=== PATIENT | male | born 1950 | race Hispanic/Latino ===

== ENCOUNTER 2017-06-07 05:11 | Day surgery (SDC) | payer MEDICARE, OTHER ==
[2017-06-07 05:11] VITALS: BMI 27.6
[2017-06-07 05:32] VITALS: RESP 18; TEMP 98.2
--- NOTE | 2017-06-07 05:44 | ED PDOC ---
Arrival/HPI - General Chief Complaint: Medical Clearance Time Seen by Provider: 06/07/17 05:29 Historian: Patient - History of Present Illness Narrative History of Present Illness (Text): 06/07/17 05:41 Patient is a 66 year old male whose past medical history includes diabetes, who presents to the Emergency department complaining of persistent hiccups. Patient reports his symptoms started at 21:00 yesterday and was not alleviated by various home remedies. He also experiences dyspnea as an associated symptom. Patient denies fevers, chills, chest pain, cough, abdominal pain, nausea, vomiting, diarrhea, headache, dizziness, back pain, neck pain, or any other complaint. Time/Duration: Other (Last night (21:00)) Symptom Course: Unchanged Activities at Onset: Rest Context: Home Past Medical History - Provider Review Nursing Documentation Reviewed: Yes - Cardiac Hx Cardiac Disorders: Yes Hx Hypertension: Yes - Pulmonary Hx Respiratory Disorders: No - Neurological Hx Neurological Disorder: No - HEENT Hx HEENT Disorder: No - Renal Hx Renal Disorder: No - Endocrine/Metabolic Hx Endocrine Disorders: Yes Hx Diabetes Mellitus Type 2: Yes - Hematological/Oncological Hx Blood Disorders: No - Integumentary Hx Dermatological Disorder: No - Musculoskeletal/Rheumatological Hx Musculoskeletal Disorders: No - Gastrointestinal Hx Gastrointestinal Disorders: No - Genitourinary/Gynecological Hx Genitourinary Disorders: No - Psychiatric Hx Psychophysiologic Disorder: No Hx Substance Use: No Family/Social History - Physician Review Nursing Documentation Reviewed: Yes Family/Social History: No Known Family HX Smoking Status: Never Smoked Hx Alcohol Use: No Hx Substance Use: No Allergies/Home Meds Allergies/Adverse Reactions: Allergies ofloxacin [From Floxin] Allergy (Verified 06/07/17 05:32) "hiccups" Penicillins Allergy (Verified 06/07/17 05:32) ANAPHYLAXIS Home Medications: Home Meds Medication Instructions Recorded Confirmed Glimepiride [Glimepiride] 60 mg PO BID 11/21/15 06/07/17 metFORMIN [glucOPHAGE] 1,000 mg PO BID 11/21/15 06/07/17 Azilsartan Medoxomil [Edarbi] 40 mg PO DAILY 06/07/17 06/07/17 Review of Systems - Physician Review All systems were reviewed & negative as marked: Yes - Review of Systems Constitutional: absent: Fevers, Night Sweats Respiratory: Other (Hiccups). absent: SOB, Cough Cardiovascular: absent: Chest Pain, KEATING Gastrointestinal: absent: Abdominal Pain, Diarrhea, Nausea, Vomiting Musculoskeletal: absent: Back Pain, Neck Pain Neurological: absent: Headache, Dizziness Physical Exam Vital Signs Reviewed: Yes Vital Signs Temp Pulse Resp BP Pulse Ox 06/07/17 06:14 115 H 18 161/100 H 98 06/07/17 06:07 109 H 175/116 H 06/07/17 05:29 98.2 F 122 H 18 169/101 H 96 Temperature: Afebrile Blood Pressure: Hypertensive Pulse: Tachycardic Respiratory Rate: Normal Appearance: Positive for: Well-Appearing, Non-Toxic, Comfortable Pain Distress: None Mental Status: Positive for: Alert and Oriented X 3 - Systems Exam Head: Present: Atraumatic, Normocephalic Pupils: Present: PERRL Extroacular Muscles: Present: EOMI Conjunctiva: Present: Normal Mouth: Present: Moist Mucous Membranes Neck: Present: Normal Range of Motion Respiratory/Chest: Present: Clear to Auscultation, Good Air Exchange. No: Respiratory Distress, Accessory Muscle Use Cardiovascular: Present: Regular Rate and Rhythm, Normal S1, S2. No: Murmurs Abdomen: No: Tenderness, Distention, Peritoneal Signs Back: Present: Normal Inspection Upper Extremity: Present: Normal Inspection. No: Cyanosis, Edema Lower Extremity: Present: Normal Inspection. No: Edema Neurological: Present: GCS=15, CN II-XII Intact, Speech Normal Skin: Present: Warm, Dry, Normal Color. No: Rashes Psychiatric: Present: Alert, Oriented x 3, Normal Insight, Normal Concentration Medical Decision Making ED Course and Treatment: 06/07/17 05:47 Impression: Patient is a 66 year old male with persistent hiccups since 21:00.present with acute anterior wall mi Differential Diagnosis included but are not limited to: STEMI Plan: -- EKG -- labs, cardiac enzymes -- chest X-ray -- Reassess and disposition Progress Notes: 06/07/17 5:46 EKG shows sinus tachycardia at 119 BPM with anterior wall MD. Interpreted by me. 06/07/17 05:48 Code heart activated 06/07/17 5:[address] Mitchell (busser), who will review EKG. 06/07/17 5:52 Spoke again with who reviewed EKG and states patient will be taken to laboratory operations coordinator, and recommends integrilin bolus, Brilinta, and Heparin. 06/07/17 06:15 Chest X-ray negative with no acute processes. Interpreted by me. 06/07/17 06:17 Pt taken to laboratory operations coordinator with house doctor at bedside. 06/08/17 08:36 - Critical Care Critical Care Minutes: 30 minutes Narrative Critical Care (Text): management of STEMI - Lab Interpretations Lab Results: 06/07/17 05:53 06/07/17 05:53 Lab Results 06/07/17 05:53: Sodium 134, Potassium 4.0, Chloride 98, Carbon Dioxide 24, Anion Gap 17, BUN 28 H, Creatinine 1.6 H, Est GFR ( Amer) 53, Est GFR ( Non-Af Amer) 43, Random Glucose 310 H*, Calcium 9.2, Total Bilirubin 0.9, AST 157 H D, ALT 38, Alkaline Phosphatase 95, Lactate Dehydrogenase 2060 H, Total Creatine Kinase 404 H, CK-MB (CK-2) 12.3 H, CK-MB (CK-2) % 3.0, Troponin I 36.40 H*, Total Protein 7.8, Albumin 4.1, Globulin 3.8, Albumin/Globulin Ratio 1.1 06/07/17 05:53: PT 12.3, INR 1.07, APTT 34.1 06/07/17 05:53: WBC 13.7 H, RBC 5.56, Hgb 14.3, Hct 43.5, MCV 78.2 L, MCH 25.7, MCHC 32.9, RDW 15.9 H, Plt Count 182, MPV 9.0, Gran % 82.7 H, Lymph % (Auto) 8.6 L, Foard % (Auto) 8.4 H, Eos % (Auto) 0.2 L, Baso % (Auto) 0.1, Gran # 11.28 H, Lymph # (Auto) 1.2, Foard # (Auto) 1.1 H, Eos # (Auto) 0.0, Baso # (Auto) 0.02 - RAD Interpretation Radiology Orders: 06/07/17 05:52 CHEST PORTABLE [RAD] Stat Software Application Tester: ED Physician - EKG Interpretation Interpreted by ED Physician: Yes Type: 12 lead EKG - Medication Orders Current Medication Orders: Discontinued Medications Aspirin (Ecotrin) 81 mg PO STAT STA Stop: 06/07/17 05:52 Last Admin: 06/07/17 06:01 Dose: 81 mg Clopidogrel Bisulfate (Plavix) 600 mg PO STAT STA Stop: 06/07/17 05:52 Last Admin: 06/07/17 06:01 Dose: 600 mg Eptifibatide (Integrilin Bolus) 18 mg 0.18 mg/kg (18 mg) IV ONCE ONE Stop: 06/07/17 05:52 Last Admin: 06/07/17 06:04 Dose: 18 mg eMAR Start Stop Document 06/07/17 06:04 AD (Rec: 06/07/17 06:29 AD [id number]) Intravenous Solution Start Date 06/07/17 Start Time 06:04 Heparin Sodium (Porcine) (Heparin) 5,000 units IVP STAT STA PRN Reason: Protocol Stop: 06/07/17 06:02 Last Admin: 06/07/17 06:06 Dose: 5,000 units IVP Administration Document 06/07/17 06:06 AD (Rec: 06/07/17 06:30 AD [id number]) Charges for Administration # of IVP Administrations 1 Eptifibatide (Integrilin) 75 mg in 100 mls @ 15.966 mls/hr IV .Q6H16M MAGUI; 2 MCG/KG/MIN PRN Reason: Protocol Nitroglycerin/Dextrose (Nitroglycerin 50 Mg/250 Ml D5w) 50 mg in 250 mls @ 1.5 mls/hr IV .Q24H PRN; Protocol; 5 MCG/MIN PRN Reason: Systolic Blood Pressure Metoprolol Tartrate (Lopressor) 5 mg IVP STAT STA Stop: 06/07/17 05:52 Last Admin: 06/07/17 06:07 Dose: 5 mg IVP Administration Document 06/07/17 06:07 AD (Rec: 06/07/17 06:30 AD [id number]) Charges for Administration # of IVP Administrations 1 MAR Pulse and Blood Pressure Document 06/07/17 06:07 AD (Rec: 06/07/17 06:30 AD [id number]) Pulse Pulse Rate (60-90) 109 Blood Pressure Blood Pressure (100/60-150/90) 175/116 Ticagrelor (Brilinta) 180 mg PO STAT STA Stop: 06/07/17 06:03 Last Admin: 06/07/17 06:13 Dose: 180 mg - Scribe Statement The provider has reviewed the documentation as recorded by the Scribe Toro Mackenzie Training Under Gillian Ayon Provider Scribe Attestation: All medical record entries made by the Scribe were at my direction and personally dictated by me. I have reviewed the chart and agree that the record accurately reflects my personal performance of the history, physical exam, medical decision making, and the department course for this patient. I have also personally directed, reviewed, and agree with the discharge instructions and disposition. Disposition/Present on Arrival - Present on Arrival Any Indicators Present on Arrival: No History of DVT/PE: No History of Uncontrolled Diabetes: No Urinary Catheter: No History of Decub. Ulcer: No History Surgical Site Infection Following: None - Disposition Have Diagnosis and Disposition been Completed?: Yes Diagnosis: Anterior wall myocardial infarction Disposition: HOSPITALIZED Disposition Time: 06:20 Condition: CRITICAL
[2017-06-07] MEDS ORDERED: Eptifibatide 20 mg/10mL Inj IV ONE (05:51)
[2017-06-07] MEDS ORDERED: Metoprolol 1 mg/ml Inj IVP STA (05:51)
[2017-06-07] MEDS ORDERED: Phenylephrine 10 mg/ml Inj ONE (05:55)
[2017-06-07] MEDS ORDERED: Verapamil 2 ML ONE (05:55)
[2017-06-07] MEDS ORDERED: Lidocaine 2% Inj (20ml) ONE ×2 (05:55→07:18)
[2017-06-07] MEDS ORDERED: Midazolam 2 MG/2 ML VIAL ONE (05:56)
[2017-06-07] MEDS ORDERED: Iodixanol 320 MG/ML 100 ML BOTTLE IV ONE (05:57)
[2017-06-07] MEDS ORDERED: Iohexol 350mgl/ml 50 ML ONE (05:57)
[2017-06-07] MEDS ORDERED: Nitroglycerin 50mg in D5W 50 MG/250 ML BOTTLE IV ONE (05:57)
[2017-06-07] MEDS ORDERED: Iodixanol 320 MG/ML 200 ML BOTTLE IV ONE (05:57)
[2017-06-07 06:07] LABS: BASO # 0.02 K/mm3 (0.0-2.0); BASO % 0.1 % (0.0-3.0); EOS % 0.2 % (1.5-5.0); GRAN # 11.28 (1.4-6.5); GRAN % 82.7 % (50.0-68.0); HEMOGLOBIN 14.3 g/dL (14.0-18.0); LYMPH # 1.2 (1.2-3.4); LYMPH % 8.6 % (22.0-35.0); MEAN CELL VOLUME 78.2 fl (80.0-105.0); MEAN CORPUSCULAR HEMOGLOBIN 25.7 pg (25.0-35.0); MEAN CORPUSCULAR HGB CONC 32.9 g/dl (31.0-37.0); MONO # 1.1 (0.1-0.6); MONO % 8.4 % (1.0-6.0); RBC 5.56 10^6/uL (3.5-6.1); RED CELL DISTRIBUTION WIDTH 15.9 % (11.5-14.5); WHITE BLOOD COUNT 13.7 10^3/ul (4.5-11.0)
[2017-06-07] MEDS ORDERED: Nitroglycerin 50mg in D5W 50 MG/250 ML BOTTLE IV PRN (06:15)
[2017-06-07] MEDS ORDERED: Eptifibatide 0.75 mg/ml 75 MG/100 ML BOTTLE IV SCH (06:15)
[2017-06-07 06:17] LABS: INR 1.07 (0.93-1.08); PARTIAL THROMBOPLASTIN TIME 34.1 Seconds (25.1-36.5); PROTHROMBIN TIME 12.3 SECONDS (9.4-12.5)
[2017-06-07 06:31] LABS: ALB/GLOB RATIO 1.1 (1.1-1.8); ALBUMIN 4.1 g/dL (3.0-4.8); CALCIUM 9.2 mg/dL (8.4-10.5)
[2017-06-07] MEDS ORDERED: Eptifibatide 20 mg/10mL Inj IVP ONE (06:39)
[2017-06-07 06:48] VITALS: BP 161/100; PULSE 115; O2SAT 98
--- NOTE | 2017-06-07 06:48 | CP.PCM.PCO ---
<Rom Woodward - Last Filed: 06/07/17 06:38> Physician Communication Note - Physician Communication Note Physician Communication Note: Please see attached section for [facility] Note Summary - Summary of Event Summary of Event: This is a 66 yo M with PMH of DMII, HTN, and remote tobacco history who presented to [facility] ED with complaint of hiccups that began overnight and did not improve. Pt denies any incidence of chest pain during this time, or shortness of breath, only complained of hiccups that persisted. After arrival to [facility], an EKG was obtained as was acutely concerns for anterior-inferior infarction, due to ping ST elevations in V3-V5, and less ping but still notable ST-elevations in II, III, and aVF. Simplex Operator horizontal resaw operator for [facility] was contacted by the ED, reviewed the EKG images, and confirmed STEMI, Brittani Heart then called at 0549. Responded to the ED promptly. Pending transfer to metallurgical lab technician (awaiting cath team to arrive), pt received 81mg PO aspirin, loading dose of Plavix 600mg , Integrillin bolus of 18mg IV, Heparin 5000 units SC, Metoprolol 5mg IVP, and a Brilinta loading dose of 180mg. He was then started on a Nitro drip and an Intergillin drip. Portable monitor with pacing pads were placed on patient's bed and chest (respectively), showing sinus tachycardia (consistent with rhythm on initial EKGs), and after receiving notification of Cath team's arrival, patient was transported from ED to metallurgical lab technician without issue. Simplex Operator (Dr. Mitchell) arrived, patient remains in stable condition at time of arrival, patient handed off to him. Patient seen, reviewed, and discussed with attending, Dr. Solorio. <Dominik Solorio - Last Filed: 06/07/17 20:36> Attending/Attestation - Attestation I have personally seen and examined this patient.: Yes I have fully participated in the care of the patient.: Yes I have reviewed all pertinent clinical information: Yes Notes (Text): 06/07/17 06:52 Patient was seen in the ER promptly after I heard [facility] announcement. This 66 year old white male came to ER with complaint of hiccough. Denies chest pain, sob, nausea, palpitation, sweating, abdominal pain, cough. Has PMH of NIDDM, HTN, HLD, renal calculus, quit smoking 40 years ago, smoked 3 -4 cig/day x 3-4 years, lithotripsy, occ alocohol use, family history of D,CHF-Father,eosphageal cancer-Mother,DM-Paternal grand father. HOME MEDS:Metformin 1000mg PO BID,Glimiperide 40 mg PO daily and more. CRITICAL CARE TIME SPENT :60 MINUTES.
[2017-06-07 06:59] LABS: CK-MB 12.3 ng/mL (0.0-3.6); TROPONIN I 36.4 ng/mL
--- NOTE | 2017-06-07 08:04 | RAD ---
HISTORY: cp COMPARISON: No prior. FINDINGS: LUNGS: No active pulmonary disease. PLEURA: No significant pleural effusion identified, no pneumothorax apparent. CARDIOVASCULAR: Normal. OSSEOUS STRUCTURES: No significant abnormalities. VISUALIZED UPPER ABDOMEN: Normal. OTHER FINDINGS: None. IMPRESSION: No active disease.
--- NOTE | 2017-06-07 08:22 | PCM.RRT ---
NECKTIE TURNER Nurse Assessment - Situation Date: 06/07/17 Time NECKTIE TURNER was called: 07:19 (Brittani Jorge) NECKTIE TURNER Responder Arrival Time: 07:19 NECKTIE TURNER Location:: Pre Owned Sales Consultant NECKTIE TURNER Called By: RN - IV IV Inserted during NECKTIE TURNER?: No IV Fluids Initiated During NECKTIE TURNER?: Already running IVF. It was made wide open - Respiratory Oxygen Delivery Method: Non Rebreather @% Oxygen Flow Rate: 100 Was the Patient Ventilated with Bag/Mask 100% O2?: Yes Secretions Suctioned?: Yes Was the Patient Intubated?: No (Difficult intubation. Dr Nova and Anethesiologist assisted) Was the Patient Placed on a Ventilator?: No - Diagnostic Test Ordered EKG: Yes (Anterior-inferior infarction, ST elevations in V3-V5, II, III, and aVF ) CPR started during NECKTIE TURNER?: Yes - Tamara Coma Scale Coma Scale Eye Opening: No response Coma Scale Motor: None Coma Scale Verbal: No response - Time NECKTIE TURNER Ended Time NECKTIE TURNER Ended: 07:40 - Recommendations Notifications: Attending Physician, Family or Designated Caregiver I.Reason for NECKTIE TURNER - A) Acute Change in Patient: Subjective: PGY-[address] Mitchell CC: Brittani Novoa Ms Martino, 66 yo M with PMH of DMII, HTN, and former smoker history presented to [facility] ED with complaint of hiccups that began overnight and did not improve. EKG in ED showed sinus bradycardia and anterior-inferior infarction, ST elevations in V3-V5 and II, III, and aVF. In the coreroom foundry laborer, pt received 2 Versed and 50 fentynl. While pt was in the coreroom foundry laborer, it was noted his cardiac rhythm turned to PEA at 7:17am. CPR initiated. ACLS protocol followed. Brittani novoa called at 7: 19a. At 7:34, intraaortic balloon pumped was in but not yet deployed. At 7:34, cardiac rhythm changed to V fib, delivered shock twice, but rhythm remained V fib. Then pt received amiodarone bolus x 1. 7 rounds of epi and 2 rounds of neosynephrine given. All agreed to end code at 7:40
--- NOTE | 2017-06-07 08:44 | CP.PCM.PRO ---
Pronouncement of Note - Clinical Findings Physical Exam: No Response Verbal/Painful Stimuli, Absent Peripheral Pulses{ Carotid & Femoral}, Absent Heart & Breath Sounds, No Pupillary Light Reflex, No Corneal Reflex, Pupils Fixed & Dilated, Absence of Vital Signs - Pronouncement Time Time of Pronouncement of : 07:42 - Notifications Pronouncement Notifications: Family Notified, Atending Notified Patient Service Rep Notified: Yes - Autopsy Autopsy Requested: No - [place] [id number]
--- NOTE | 2017-06-07 08:55 | CPOSTOP ---
DATE: 06/07/2017 CARDIAC PLATE GLASS GRINDER POST PROCEDURE NOTE PHYSICIAN: Dwayne Mitchell MD [facility] ATTENDANT: Yan Mosqueda, dye penetrant testing technician. TYPE OF ANESTHESIA: Moderate conscious sedation. PRE-PROCEDURE DIAGNOSES: ST elevation myocardial infarction, anterior wall myocardial infarction. PROCEDURE PERFORMED: Left heart catheterization, attempted percutaneous transluminal coronary angioplasty of left anterior descending, intra-aortic balloon pump, intubation. FINDINGS: RCA total, chronic occlusion, LAD apparently looks new occlusion, mid totally occluded, circumflex diffusely diseased. FINAL DIAGNOSIS: Multivessel coronary artery disease. POST PROCEDURE CONDITION: Patient . VASCULAR ACCESS: Left radial for percutaneous transluminal coronary angioplasty, right femoral for intra-aortic balloon pump. CLOSURE DEVICE: None. RADIATION DOSE: 34463.6. FLUORO TIME: 13.8 minute. Dwayne Mitchell MD MTDD
--- NOTE | 2017-06-07 13:03 | CARD ---
APPROVED REPORT EKG Measurement Heart [id number] <Conclusion> Sinus tachycardia Possible Left atrial enlargement Left axis deviation Inferior infarct, possibly acute Anteroseptal infarct, possibly acute Lateral injury pattern ACUTE [place] Abnormal ECG
--- NOTE | 2017-06-07 19:32 | CON ---
DATE: REASON FOR CONSULTATION: Code STEMI, anterior wall NH. BRIEF CLINICAL HISTORY: This is a 66-year-old male with past medical history diabetes more than 20 years. He came to the Emergency Room with complaint of hiccups. EKG showed acute anterior wall NH, code STEMI was activated. I spoke to the patient. Risks, benefits and alternatives were discussed with the patient. The patient agreed to proceed for cardiac catheterization. Discussed with the family. PAST MEDICAL HISTORY: Significant for diabetes. SOCIAL HISTORY: Denies smoking. Denies any history of alcohol abuse. CURRENT MEDICATIONS: As per chart and nurses not reviewed by me. PHYSICAL EXAMINATION: VITAL SIGNS: Temperature afebrile, heart rate 90, blood pressure 120/80. HEENT: PERRLA. Extraocular muscles intact. NECK: Supple. No carotid bruits or thyromegaly. CHEST: Clear to auscultation. HEART: S1 and S2 regular. ABDOMEN: Soft. EXTREMITIES: Clubbing and cyanosis negative. LABORATORY DATA: Blood workup is pending. EKG shows normal sinus, acute ST elevation anteriorly. IMPRESSION: Acute anterior wall myocardial infarction, code ST elevation myocardial infarction. In addition, of note, the patient does not have any chest pain, but have hiccups consistent with acute myocardial infarction. PLAN: We will give 600 Plavix, 5000 heparin bolus, followed by 2 boluses of Integrellin and drop and 325 mg of aspirin. Risks, benefits and alternatives were discussed with the patient. The patient agreed to proceed for cardiac catheterization. Further recommendation after cardiac catheterization. We will follow with the lab. Thank you, Dr. Dunaway, for providing us the opportunity in taking care of the patient, Brodie Martino Dwayne Mitchell MD cc: Dr. Dunaway MTDGina
--- NOTE | 2017-06-08 07:53 | CARDCATH ---
PROCEDURE DATE: 06/07/2017 CARDIAC ELECTRONIC WARFARE OFFICER PROCEDURE/ANGIOPLASTY PROCEDURES PERFORMED: Left heart catheterization, angioplasty of LAD. BRANCH ASSOCIATE: Vale Mosqueda, ground control approach technician. SCHEDULE: Emergent. BRIEF CLINICAL HISTORY: This is a 66-year-old male with past medical history of diabetes for 20 years, came in with complaints of hiccup in emergency room, found to be ST elevation in anterior lead. The patient on emergent basis taken to the engineer geophysical laboratory. Risk and benefits were discussed with the patient. Left radial access was obtained and cardiac catheterization was done. FINDINGS: Left main essentially free of significant disease, bifurcate LAD and circumflex LAD, mid totally occluded, diffuse disease proximal to mid and mid LAD totally occluded, possibly thought to be the culprit for acute AR. Circumflex is diffusely diseased, but no flow limiting stenosis noted. Right coronary artery, total [id number] occlusion long segment proximal to mid to distal segment. In view of above, PTCA of LAD was contemplated. The patient prior to coming to the engineer geophysical laboratory got 600 mg Plavix, Integrilin single bolus drip was started, 1 more bolus was given and 5000 heparin was given. ACT was checked, found to be 222 seconds. XB 3.5 guider was taken to engage the coronary and then lesion crossed with regular Luge wire and then put long exchange Choice PT and all the while balloon injection was then found distal LAD. I was able to open up to distal LAD and then at that time plan was put a suction catheter to suck the blood clot while the catheter was exchanging from regular balloon to suction catheter. The patient become asystole with pulseless electrical activity. CPR started. During this, the patient was intubated and intraaortic balloon pump was placed and after 30 minutes of resuscitation, the patient did not revive and pronounced around 7:45 . Detailed pronouncement of as per , resident. Family was notified. ME was notified and he may release the body. Dwayne Mitchell MD [facility]PITAL[facility]ina
--- NOTE | 2017-06-12 09:47 | CARD ---
APPROVED REPORT Procedure(s) performed: Left Heart Catheterization PTCA with Stenting attempted CPR Intra aotic baloon pupm placed HISTORY The patient is a 66 year-old male with a history of : diabetes mellitus with oral treatment , tobacco history() : The patient is a former smoker , hypertension , admitted with STEMI. INDICATION The indication(s) include : STEMI . CASE TECHNIQUE The patient was brought emergently to the Cardiac Catheterization Laboratory in a fasting state and was prepped and draped in a sterile manner. The left wrist was infiltrated with 2% Lidocaine subcutaneous anesthesia. A sheath was inserted into the left radial artery without difficulty. Coronary angiography was performed using coronary diagnostic catheters. The left coronary system was accessed and visualized with a Diagnostic ,6 Fr JL 4 catheter. The right coronary system was accessed and visualized with a Diagnostic ,6 Fr JR 3.5 catheter. Vessel Analysis The patient's coronary anatomy is co-dominant. The left main coronary artery is a medium size vessel with diffuse calcification noted throughout this vessel and without significant stenosis. The left main trifurcates to the left anterior descending, circumflex, and ramus. The left anterior descending artery is a medium size vessel with diffuse calcification noted throughout this vessel and with significant stenosis. There is a 100% stenosis in the mid segment. The first diagonal branch is a small size vessel with diffuse calcification noted throughout this vessel and without significant stenosis. The circumflex artery is a large size vessel with diffuse calcification noted throughout this vessel and with significant stenosis. There is a 60-70% stenosis in the distal segment. The first obtuse marginal branch is a small size vessel with diffuse calcification noted throughout this vessel and with significant stenosis. The second obtuse marginal branch is a medium size vessel with diffuse calcification noted throughout this vessel and with significant stenosis. The third obtuse marginal branch is a medium size vessel with diffuse calcification noted throughout this vessel and without significant stenosis. The left posterior descending artery is a medium size vessel with diffuse calcification noted throughout this vessel and without significant stenosis. The ramus intermedius artery is a medium size vessel with diffuse calcification noted throughout this vessel and without significant stenosis. The right coronary artery is a medium size vessel with diffuse calcification noted throughout this vessel and with significant stenosis. There is a 100% stenosis in the proximal segment. FULL ROLL INSPECTOR Collateralzed from Left system, Cx PCI Technique Lesion Anticoagulation was achieved with Heparin. Percutaneous coronary intervention was performed on the mid left anterior descending artery segment. The lesion stenosis prior to intervention was 100% with DIANNA 0 flow. A 6 Fr XB 3.5 Guide Catheter was used to engage the ostium. A Luge 182 Interventional Guidewire was used to cross the lesion. BALLOON DILATION A Balloon catheter 2.0 x 12mm Sprinter OTW was inserted and inflated up to shakira for seconds. Then exchange with long 300 cm choice PT Conclusion Auute Code STEMI Severe triple vessel Diz. RCA FULL ROLL INSPECTOR CX codominant Diffusely diseased, MultipleOM branches are Severely diffused, but small calibre vessels LAD 100% in mid segment, thought to be culprit for this Event. PTCA of LAD attempted, first tried to cross with Ludge wire, then exchange to choice PT long 300cm with Over the wire balloon and after difficulty successfully crossed the lesionand then pulled the wire and injected contrast tthrough the balloon lumen and found ballonn in true lumen. At that time I decided to take aspiration catheter to suck blood clot from occluded LAD, so while exchanging OTW balloon to suction catheter( pronto), pt went into PEA. ACLS protocol carried out, CPR done, intubated, and IABP placed,but pt went into Vfib mutiple times DC cardioversion done but could not be revived, Resuscitaed for almost half an hour, ultimately pronounced around 7:45 am, family and train examiner were notified.
== END 2017-06-07 07:42 ==
LOC: ED 05:11 → CATH 06:46 → CCU 08:41
PROVIDERS: ATTEND Internal Medicine Cardiovascular Disease
DX: I21.09 ST elevation (STEMI) myocardial infarction involving other coronary artery of anterior wall (principal); R06.6 Hiccough; I97.710 Intraoperative cardiac arrest during cardiac surgery; Y84.8 Other medical procedures as the cause of abnormal reaction of the patient, or of later complication, without mention of misadventure at the time of the procedure; I25.10 Atherosclerotic heart disease of native coronary artery without angina pectoris; E11.9 Type 2 diabetes mellitus without complications; I10 Essential (primary) hypertension; Z87.442 Personal history of urinary calculi; E78.5 Hyperlipidemia, unspecified; Z79.84 Long term (current) use of oral hypoglycemic drugs; Z87.891 Personal history of nicotine dependence
CPT/HCPCS: 31500; 33967; 71045; 80053; 82550; 82553; 83615; 84484; 85025; 85175; 85610; 85730; 92950; 93005; 93454; 96374; 96375; 99152; 99153; 99285; C1725 ×3; C1757; C1769 ×3; C1887; J1327; J1644 ×3; J2250; J2370; J3010; J7030; Q9966; Q9967 ×2